=== PATIENT | male | born 1985 | race Caucasian/White ===

== ENCOUNTER 2016-07-12 01:28 | Emergency (ER) | payer OTHER ==
[~2016-07-12] VITALS: Ht 177.8 cm; Wt 72.6 kg
--- NOTE | 2016-07-12 01:28 | NUR ---
Patient was BIBA and taken to bed 03 via gurney per EMS.
--- NOTE | 2016-07-12 01:30 | NUR ---
# 16 FR Urinary catheter inserted utilizing sterile technique. Immediate return of 35 ml YELLOW urine noted. Urine sample collected and sent to lab. Pt tolerated procedure WELL.
--- NOTE | 2016-07-12 01:38 | NUR ---
Dr. Ibarra evaluating patient at bedside.
[2016-07-12 01:40] VITALS: BP 114/78
[2016-07-12] MEDS ORDERED: NACL 0.9% 1,000 ML IV ONE (01:45)
--- NOTE | 2016-07-12 01:53 | NUR ---
PATIENT [employer] [place] [employer] PRESENTS TO ED FOR MEDICAL CLEARANCE . PT ASLEEP AT THE TIME . PD REPORTS PT TAZED TWICE ON FIELD. SKIN IS PINK/WARM/DRY; LUNGS CLEAR BL; HR EVEN AND REGULAR; NO OBJECTIVE SIGNS OF PAIN AT THIS TIME; VSS; PATIENT POSITIONED FOR COMFORT; HOB ELEVATED; BEDRAILS UP X2; BED DOWN. ER MD MADE AWARE OF PT STATUS. PD AT BEDSIDE
--- NOTE | 2016-07-12 01:58 | NUR ---
Patient taken to CT via [place] per tech. [place] [employer] with patient.
--- NOTE | 2016-07-12 02:21 | NUR ---
Patient back from CT via [facility].
--- NOTE | 2016-07-12 02:26 | NUR ---
Note jordi in EDM - 07/12/16 at 0228 by MARVIN PATIENT BIB [employer]. PATIENT EXAMINED BY DR. NASH. PATIENT MEDICALLY CLEARED AND RELEASED IN CUSTODY IN STABLE CONDITION. ORIGINAL PRE-BOOK FORM GIVEN TO OFFICER MIGUEL ANGEL.
[2016-07-12] MEDS ORDERED: KCL 20 MEQ/WATER INJ PREMIX 100 ML IV ONE (02:40)
[2016-07-12 04:48] VITALS: BP 114/78
--- NOTE | 2016-07-12 04:48 | NUR ---
PATIENT BIB [employer]. PATIENT EXAMINED BY DR. NASH. PATIENT MEDICALLY CLEARED AND RELEASED IN CUSTODY IN STABLE CONDITION. ORIGINAL PRE-BOOK FORM GIVEN TO OFFICER JORGE.
== END 2016-07-12 04:48 ==
LOC: MED 01:28
DX: F19.10 Other psychoactive substance abuse, uncomplicated (principal); R41.82 Altered mental status, unspecified; E87.6 Hypokalemia
CPT/HCPCS: 36415; 70450; 80053; 80305; 85025; 85610; 96361; 96365; 96366; 99285; G0480; G0482; J3480; J7030